=== PATIENT | male | born 1985 | race Hispanic/Latino ===

== ENCOUNTER 2022-09-06 07:19 | Emergency (ER) | payer OTHER ==
[~2022-09-06] VITALS: Ht 180.3 cm; Wt 112.7 kg
[2022-09-06] MEDS ORDERED: IOHEXOL 350 MG/ML 100ML INFUS..BTL IV ONE ×2 (07:58→08:10)
[2022-09-06 08:56] LABS: EOSINOPHILS % (AUTO) 3.3 % (0.0-8.0); HEMATOCRIT 43.3 % (42-54); MEAN CORPUSCULAR HEMOGLOBIN 31.1 pg (27.0-33.0); MEAN CORPUSCULAR HGB CONC 36.3 g/dL (32.0-36.0); MEAN CORPUSCULAR VOLUME 85.7 fL (79-99); MONOCYTES % (AUTO) 5.4 % (3.0-13.0); NEUTROPHILS % (AUTO) 63.3 % (40.0-77.0); PLATELET COUNT (AUTO) 157 K/uL (130-400); RED BLOOD CELL COUNT(AUTO) 5.05 MIL/uL (4.50-6.20); RED CELL DISTRIBUTION WIDTH 14.2 % (11.0-15.5); WHITE BLOOD COUNT (AUTO) 6.7 K/uL (4.8-10.8)
[2022-09-06 09:55] LABS: ALBUMIN 3.7 g/dL (3.5-5.0); CREATININE 0.8 mg/dL (0.5-1.5); POTASSIUM 4.6 mmol/L (3.5-5.1); TOTAL PROTEIN, SERUM 8.5 g/dL (6.0-8.3)
[2022-09-06 10:25] VITALS: BP 132/91
[2022-09-06] MEDS ORDERED: PRED20TA3 PO (10:50)
[2022-09-06] MEDS ORDERED: VALA10002 PO (10:52)
[2022-09-06 13:56] LABS: PROTHROMBIN TIME 9.8 SEC (9.6-11.6)
[2022-09-06 13:59] LABS: INR > 7.00 (0.85-1.15); PARTIAL THROMBOPLASTIN TIME 22.1 SEC (26.3-35.5)
== END 2022-09-06 11:09 | disposition home or self-care (01) ==
LOC: EDH 07:19
DX: G51.0 Bell's palsy (principal)
CPT/HCPCS: 99285; 70496; 70551; 71045; 82550 ×2; 84484; 83880; 85025; 85610; 85730; 82948; 36415; 70498; 93005; 70450; 83721 ×2; 80053 ×2; Q9967 ×2